=== PATIENT | male | born 1960 | race Caucasian/White ===

== ENCOUNTER 2018-05-16 11:43 | Emergency (ER) | payer OTHER ==
--- NOTE | 2018-05-16 18:13 | EDM.PDOC ---
ED HPI GENERAL MEDICAL PROBLEM - General Chief Complaint: General Stated Complaint: FISH HOOK Time Seen by Provider: 05/16/18 12:15 Source of Information: Reports: Patient History Limitations: Reports: No Limitations - History of Present Illness INITIAL COMMENTS - FREE TEXT/NARRATIVE: This is a 58yo M here for a fish hook embedded in the right index finger medial nail border. He denies a recent tetanus. No other health concerns. Onset: Sudden Location: Reports: Upper Extremity, Right Severity: Mild ED ROS GENERAL - Review of Systems Review Of Systems: ROS reveals no pertinent complaints other than HPI. ED EXAM, GENERAL - Physical Exam Exam: See Below Exam Limited By: No Limitations General Appearance: Alert, WD/WN, No Apparent Distress Extremities: Other (fish hook in right finger) ED GENERAL MEDICAL PROCEDURES - Additional/Other Procedure(s) Other (Free Text) Procedure(s): Right hand cleansed with saline wash and chlorhexidine. 1% lidocaine used and injected 0.3mL with a 30 ga needle at site of puncture. 22 ga needle used to retract hook at alina. No complications. Tetanus to be given. Counseled on wound care. Dressing and bacitracin applied. Course - Vital Signs Last Recorded V/S: Last Vital Signs Temp 36.9 C 05/16/18 12:20 Pulse 91 05/16/18 12:20 Resp 18 05/16/18 12:20 BP 125/93 H 05/16/18 12:20 Pulse Ox 99 05/16/18 12:20 Departure - Departure Time of Disposition: 12:30 Disposition: Home, Self-Care 01 Condition: Good Clinical Impression: Fish hook injury of finger of right hand Qualifiers: Encounter type: initial encounter Qualified Code(s): S69.91XA - Unspecified injury of right wrist, hand and finger(s), initial encounter - Discharge Information Instructions: Puncture Wound, [id number], VIS, Diphtheria, Tetanus, and Pertussis (DTaP) - CDC (08/31/2006) Referrals: PCP,None [Primary Care Provider] - Forms: ED Department Discharge - Problem List & Annotations (1) Fish hook injury of finger of right hand SNOMED Code(s): 64670149 Code(s): S69.91XA - UNSP INJURY OF RIGHT WRIST, HAND AND FINGER(S), INIT ENCNTR Status: Acute Qualifiers: Encounter type: initial encounter Qualified Code(s): S69.91XA - Unspecified injury of right wrist, hand and finger(s), initial encounter - Problem List Review Problem List Initiated/Reviewed/Updated: Yes - Assessment/Plan Plan: Counseled on care and management. Discussed fu if any concerns or infection.
== END 2018-05-16 12:26 | disposition home or self-care (01) ==
LOC: LB.ED 11:43
DX: S60.851A Superficial foreign body of right wrist, initial encounter (principal); W45.8XXA Other foreign body or object entering through skin, initial encounter
CPT/HCPCS: 99283

== ENCOUNTER 2020-08-04 10:20 | Emergency (ER) | payer OTHER ==
[2020-08-04] MEDS ORDERED: Acetaminophen/Codeine 300-30 MG Tab PO ONE (10:53)
--- NOTE | 2020-08-04 11:04 | EDM.PDOC ---
ED HPI GENERAL MEDICAL PROBLEM - General Chief Complaint: Back Pain or Injury Stated Complaint: PAIN DOWN BACK AND LEG Time Seen by Provider: 08/04/20 11:00 Source of Information: Reports: Patient, RN History Limitations: Reports: No Limitations - History of Present Illness INITIAL COMMENTS - FREE TEXT/NARRATIVE: Mr. Posadas is a 60 YOF here for low back pain he attributes to chronic sciatica, he states the pain shoots down the left leg. Standing and sitting make it worse. He has not taken anything for his pain symptoms began today. PMH of DVT and PE. NV intact, normal sensation to extremities. Lungs are CTA, Normal HRR. Abd is soft non tender, No fever, N, V or D. Full ROM. Onset: Today, Sudden Duration: Hour(s): Location: Reports: Other (low lumbar left) Quality: Reports: Sharp, Stabbing Severity: Moderate Improves with: Reports: None Worsens with: Reports: None Context: Reports: Activity Associated Symptoms: Reports: No Other Symptoms Lower Back Pain Score (Numeric/FACES): 7 - Related Data Allergies Allergy/AdvReac Type Severity Reaction Status Date / Time vancomycin Allergy Rash Verified 08/04/20 10:27 Home Meds: Home Meds Albuterol [Ventolin HFA] 1 puff INH DAILY 08/04/20 [History] Budesonide/Formoterol [Symbicort 160-4.5 MCG] 1 puff INH BID 08/04/20 [History] Pantoprazole Sodium [Protonix] 40 mg PO DAILY 08/04/20 [History] Vortioxetine [Brintellix] 10 mg PO DAILY 08/04/20 [History] Warfarin [Coumadin] 5 mg PO SUTUTHSA 08/04/20 [History] Warfarin [Coumadin] 7.5 mg PO MOWEFR 08/04/20 [History] Social & Family History - Tobacco Use Tobacco Use Status *Q: Never Tobacco User Second Hand Smoke Exposure: No - Caffeine Use Caffeine Use: Reports: Coffee - Recreational Drug Use Recreational Drug Use: No ED ROS GENERAL - Review of Systems Review Of Systems: See Below Musculoskeletal: Reports: Back Pain (low L4-L5), Leg Pain (shoots down his left leg) ED EXAM,LOWER BACK PAIN/INJURY - Physical Exam Exam: See Below Exam Limited By: No Limitations General Appearance: Alert, WD/WN, Moderate Distress Eye Exam: Bilateral Eye: PERRL Ears: Normal External Exam Nose: Normal Inspection, Normal Mucosa Throat/Mouth: Normal Inspection, Normal Lips, Other (Dentures) Head: Atraumatic, Normocephalic Neck: Normal Inspection, Supple, Non-Tender Respiratory/Chest: No Respiratory Distress, Lungs Clear, Normal Breath Sounds Cardiovascular: Normal Peripheral Pulses, Regular Rate, Rhythm, No Edema, No JVD GI/Abdominal: Normal Bowel Sounds, Soft, Non-Tender (Male) Exam: Deferred Rectal (Males) Exam: Deferred Back Exam: Other (Full ROM but painful and slow) Extremities: Normal Inspection, Normal Range of Motion Neurological: Alert, Normal Mood/Affect, Normal Dorsiflexion, CN II-XII Intact, Normal Plantar Flexion, Other (Antalgic gait) Psychiatric: Normal Affect, Normal Mood Skin Exam: Warm, Dry, Intact, Normal Color Lymphatic: No Adenopathy Course - Vital Signs Last Recorded V/S: Last Vital Signs Temp 36.6 C 08/04/20 10:20 Pulse 104 H 08/04/20 10:20 Resp 16 08/04/20 10:20 BP 131/95 H 08/04/20 10:20 Pulse Ox 95 08/04/20 10:20 - Orders/Labs/Meds Orders: Active Orders 24 hr Category Date Time Status Lumbar Spine wo Cont [CT] Stat Exams 08/04/20 10:52 Ordered Acetaminophen/Codeine [Tylenol with Codeine No.3 300MG/ Med 08/04/20 10:53 Once 30MG] 1 tab PO ONETIME ONE Departure - Departure Time of Disposition: 12:10 Disposition: Home, Self-Care 01 Condition: Good Clinical Impression: Spondylosis, Neural foraminal stenosis of lumbar spine - Discharge Information *PRESCRIPTION DRUG MONITORING PROGRAM REVIEWED*: Not Applicable *COPY OF PRESCRIPTION DRUG MONITORING REPORT IN PATIENT WILIAN: Not Applicable Instructions: Spondylolysis, Chronic Back Pain, [id number], Pain Medicine Instructions, [id number] Referrals: PCP,None [Primary Care Provider] - Care Plan Goals: Consult with with Neuro or Ortho spine. Consider PT trial. Use heat. Take pain meds as directed. Use topical pain gels, Biofreeze, Voltaren, Lidocaine patch. Over the counter. Return to ED or see PCP for new or worsening symptoms. Sepsis Event Note (ED) - Evaluation Sepsis Screening Result: No Definite Risk - Focused Exam Vital Signs: Vital Signs Temp Pulse Resp BP Pulse Ox 08/04/20 10:20 36.6 C 104 H 16 131/95 H 95 - Problem List & Annotations (1) Neural foraminal stenosis of lumbar spine SNOMED Code(s): 416360455 Code(s): M48.061 - SPINAL STENOSIS, LUMBAR REGION WITHOUT NEUROGENIC JAYCOB Status: Acute Priority: High Current Visit: Yes (2) Spondylosis SNOMED Code(s): 3695954 Code(s): M47.9 - SPONDYLOSIS, UNSPECIFIED Status: Acute Priority: High Current Visit: Yes - My Orders Last 24 Hours: My Active Orders 08/04/20 10:52 Lumbar Spine wo Cont [CT] Stat 08/04/20 10:53 Acetaminophen/Codeine [Tylenol with Codeine No.3 300MG/30MG] 1 tab PO ONETIME ONE - Assessment/Plan Last 24 Hours: My Active Orders 08/04/20 10:52 Lumbar Spine wo Cont [CT] Stat 08/04/20 10:53 Acetaminophen/Codeine [Tylenol with Codeine No.3 300MG/30MG] 1 tab PO ONETIME ONE Assessment:: Acute exacerbation of Spondylosis with neural foraminal narrowing. Plan: Consult with with Neuro or Ortho spine. Consider PT trial. Use heat. Take pain meds as directed. Use topical pain gels, Biofreeze, Voltaren, Lidocaine patch. Over the counter. Return to ED or see PCP for new or worsening symptoms.
[2020-08-04] MEDS ORDERED: Acetaminophen/Codeine 300-30 MG Tab ONE (11:20)
[2020-08-04] MEDS ORDERED: methylPREDNISolone Sodium Succinate 40 MG/1 ML SDV IM ONE (11:35)
[2020-08-04] MEDS ORDERED: methylPREDNISolone Sodium Succinate 40 MG/1 ML SDV ONE (11:49)
--- NOTE | 2020-08-04 14:05 | CT ---
DATE OF SERVICE: 08/04/2020 CLINICAL DATA: Holloway pop in spine. LUMBAR SPINE CT: Multislice axial acquisition from T12 to S3 was performed. Axial images and sagittal and coronal reformations are reviewed. No priors. There is diffuse osteopenia. No evidence of acute fracture or dislocation. There is a laminectomy defect at the L4-5 level. There is slight anterolisthesis of L4 on L5. There is degenerative disc disease throughout the lumbar spine with disc space narrowing at multiple levels, greatest at the L4-5 level. There is mild annular bulging of the L2-3 disc. There is mild facet joint and ligamentum flavum hypertrophy at this level. There is mild central and mild neural foraminal stenosis bilaterally. There is annular bulging of the L3-4 disc. There is facet joint and ligamentum flavum hypertrophy at this level. There is moderate central spinal stenosis and mild neural foraminal stenosis bilaterally. There is a laminectomy defect at the L4-5 level. There is annular bulging of the 4-5 disc with a broad-based disc protrusion posterolaterally on the left. It does appear to encroach the lateral recess on the left. There is facet joint hypertrophy at this level. There is mild neural foraminal stenosis on the right and moderate neural foraminal stenosis on the left. There is annular bulging at the L5-S1 disc. There is facet joint hypertrophy at this level. There is mild neural foraminal stenosis on the right and mild neural foraminal stenosis on the left. There is an inferior vena cava filter in place. No other significant findings. [id number] [facility]
== END 2020-08-04 12:05 | disposition home or self-care (01) ==
LOC: LB.ED 10:20
DX: M47.816 Spondylosis without myelopathy or radiculopathy, lumbar region (principal); M48.061 Spinal stenosis, lumbar region without neurogenic claudication; Z79.01 Long term (current) use of anticoagulants; Z79.899 Other long term (current) drug therapy; Z88.1 Allergy status to other antibiotic agents
CPT/HCPCS: 72131; 96372; 99283-25; A9270-GY; J2920